=== PATIENT | female | born 1945 ===

== ENCOUNTER → 2020-10-23 11:31 | Outpatient (BNVA) | payer MEDICARE, SELFPAY | PROVIDERS: PCP Pediatrics; Visit Provider Family Medicine Adult Medicine | DX: M23.306 Other meniscus derangements, unspecified meniscus, right knee (principal); M23.307 Other meniscus derangements, unspecified meniscus, left knee; M48.061 Spinal stenosis, lumbar region without neurogenic claudication; M47.816 Spondylosis without myelopathy or radiculopathy, lumbar region | CPT/HCPCS: 99212 ==

== ENCOUNTER → 2021-01-22 10:41 | Outpatient (BNVA) | payer MEDICARE, SELFPAY | PROVIDERS: PCP Pediatrics; Visit Provider Family Medicine Adult Medicine | DX: M47.816 Spondylosis without myelopathy or radiculopathy, lumbar region (principal); M48.061 Spinal stenosis, lumbar region without neurogenic claudication; M23.307 Other meniscus derangements, unspecified meniscus, left knee; M23.306 Other meniscus derangements, unspecified meniscus, right knee; Z79.899 Other long term (current) drug therapy | CPT/HCPCS: 99212 ==

== ENCOUNTER → 2021-03-19 13:16 | Outpatient (BNVA) | payer MEDICARE, SELFPAY | PROVIDERS: PCP Pediatrics; Visit Provider Family Medicine Adult Medicine | DX: M47.816 Spondylosis without myelopathy or radiculopathy, lumbar region (principal); M48.061 Spinal stenosis, lumbar region without neurogenic claudication; M23.307 Other meniscus derangements, unspecified meniscus, left knee; M23.306 Other meniscus derangements, unspecified meniscus, right knee | CPT/HCPCS: 99212 ==

== ENCOUNTER → 2021-05-23 12:38 | Outpatient (BNVA) | payer MEDICARE, SELFPAY | PROVIDERS: PCP Pediatrics; Visit Provider Family Medicine Adult Medicine | DX: M23.306 Other meniscus derangements, unspecified meniscus, right knee (principal); M23.307 Other meniscus derangements, unspecified meniscus, left knee; M48.061 Spinal stenosis, lumbar region without neurogenic claudication; M47.816 Spondylosis without myelopathy or radiculopathy, lumbar region; M79.7 Fibromyalgia | CPT/HCPCS: 99212 ==

== ENCOUNTER → 2021-06-20 11:26 | Outpatient (BNVA) | payer MEDICARE, SELFPAY | PROVIDERS: PCP Pediatrics; Visit Provider Family Medicine Adult Medicine | DX: M47.816 Spondylosis without myelopathy or radiculopathy, lumbar region (principal); M48.061 Spinal stenosis, lumbar region without neurogenic claudication; M23.307 Other meniscus derangements, unspecified meniscus, left knee; M23.306 Other meniscus derangements, unspecified meniscus, right knee; M79.7 Fibromyalgia | CPT/HCPCS: 99212 ==